=== PATIENT | male | born 1965 | race African-American/Black ===

== ENCOUNTER 2017-01-02 14:44 | Emergency (ER) | payer OTHER ==
[~2017-01-02] VITALS: Ht 177.8 cm; Wt 70.5 kg
[2017-01-02 16:19] LABS: HEMATOCRIT 49.7 % (38.0-50.0); MCH 29.9 PG (29.0-34.0); MCV 90.7 FL (86-99); MEAN PLAT.VOLUME 10.9 uM^3 (9.0-12.4); PLATELET COUNT 264 K/uL (156-360); RBC DIS.WIDTH-CV 12.4 % (11.8-14.6); RED BLOOD COUNT 5.48 M/uL (4.00-5.50); WHITE BLOOD COUNT 6.1 K/uL (4.1-10.2)
[2017-01-02 16:31] LABS: CHLORIDE 107 mEq/L (99-109); POTASSIUM 3.9 mEq/L (3.7-5.4); SODIUM 145 mEq/L (136-147)
[2017-01-02 16:34] LABS: GLUCOSE 91 mg/dL (70-99)
[2017-01-02 16:35] LABS: ANION GAP 15 MEQ/L (2-14); TOTAL BILIRUBIN 0.5 mg/dL (0.0-1.0)
[2017-01-02 16:37] LABS: ALKALINE PHOSPHATASE 116 IU/L (3-129); GFR ESTIMATE (CALCULATED) > 59 mL/min/; SERUM ETHYL ALCOHOL 242 mg/dL
[2017-01-02 16:38] LABS: UREA NITROGEN (BUN) 3 mg/dL (9-23)
[2017-01-02] MEDS ORDERED: OXYCONTIN30 MG PO (17:38)
[2017-01-02] MEDS ORDERED: OXYCODONE HCL10 MG PO (17:38)
[2017-01-02] MEDS ORDERED: ALPRAZOLAM1 MG PO (17:39)
[2017-01-03] MEDS ORDERED: ZOFRAN ODT4 MG PO (00:12)
[2017-01-03] MEDS ORDERED: IMODIUM A-D2 M2 PO (00:12)
[2017-01-03 00:40] VITALS: BP 145/95
== END 2017-01-03 00:42 | disposition home or self-care (01) ==
LOC: EME 14:44
PROVIDERS: Emergency Medicine
DX: F10.129 Alcohol abuse with intoxication, unspecified (principal); Y90.8 Blood alcohol level of 240 mg/100 ml or more; F32.9 Major depressive disorder, single episode, unspecified; F43.21 Adjustment disorder with depressed mood; F41.1 Generalized anxiety disorder; M19.90 Unspecified osteoarthritis, unspecified site; G89.29 Other chronic pain; M54.9 Dorsalgia, unspecified
CPT/HCPCS: 80053; 85027; 90837; 99281; 99285; G0480